=== PATIENT | female | born 1955 | race Caucasian/White ===

== ENCOUNTER 2019-09-12 13:36 | Emergency (ER) | payer MEDICAID ==
--- NOTE | 2019-09-12 14:02 | Emergency Department Record ---
History of Present Illness - General Chief Complaint: Bloody Sputum Stated Complaint: COUGHING BLOOD Time Seen by Provider: 09/12/19 13:56 Source: Patient Mode of Arrival: Ambulatory Limitations: No limitations - History of Present Illness Initial comments: The patient is here due to having a cough for about a week. She has had recent colored sputum production also and did have a fever a few days ago but that went away. This AM she was coughing hard and had a dime size area of blood in her sputum. Since that episode she has had no blood in the sputum. The patient denies any Cp, SOB, or back pain. She does have a hx of recent lung CA and did have XRT and Chemo which has ended. She is also in an experimental trial for lung CA at [facility] and is receiving Nivolumab IV monthly. Onset/Timin -: Week(s) - Related Data Home Medications Medication Instructions Recorded Confirmed Last Taken Ondansetron HCl [Zofran] 8 mg PO ASDIR 09/12/19 09/12/19 Unknown Previous Rx's Medication Instructions Recorded Levofloxacin [Levaquin] 750 mg PO DAILY #4 tab 09/12/19 Allergies Allergy/AdvReac Type Severity Reaction Status Date / Time No Known Drug Allergies Allergy Unverified 03/04/18 10:22 Travel Screening - Travel/Exposure Within Last 30 Days Have you traveled within the last 30 days?: No Review of Systems Constitutional: Reports: Malaise. Denies: Chills, Fever Eyes: Denies: Eye discharge ENT: Reports: Congestion Respiratory: Reports: Cough. Denies: Dyspnea Cardiovascular: Denies: Arrhythmia, Chest pain Endocrine: Reports: Fatigue Gastrointestinal: Denies: Nausea Genitourinary: Denies: Dysuria Musculoskeletal: Denies: Arthralgia Skin: Denies: Bruising Past Medical History - SOCIAL HISTORY Smoking Status: Former smoker Alcohol Use: None Drug Use Detail:: Marijuana - RESPIRATORY Hx Respiratory Disorders: Yes Hx COPD: Yes Comment:: lung cancer - CARDIOVASCULAR Hx Cardio Disorders: No - NEURO Hx Neuro Disorders: No - GI Hx GI Disorders: No - Hx Genitourinary Disorders: No - ENDOCRINE Hx Endocrine Disorders: No - MUSCULOSKELETAL Hx Musculoskeletal Disorders: Yes - PSYCH Hx Psych Problems: No - HEMATOLOGY/ONCOLOGY Hx Hematology/Oncology Disorders: Yes Hx Cancer: Yes Hx Chemotherapy: Yes Hx Radiation Therapy: Yes Family Medical History Any Significant Family History?: No Physical Exam - General General Appearance: Alert, Oriented x3, Cooperative, No acute distress (The patient is speaking in full sentences with no coughing or SOB.) - Head Head exam: Atraumatic, Normocephalic, Normal inspection - Eye Eye exam: Normal appearance, PERRL - ENT Throat exam: Normal inspection. negative: Tonsillar erythema, Tonsillar exudate - Neck Neck exam: Normal inspection, Full ROM. negative: Tenderness - Respiratory Respiratory exam: Decreased breath sounds (There is mildly decreased breath sounds in the bases.). negative: Normal lung sounds bilaterally, Accessory muscle use, Prolonged expiratory, Respiratory distress, Wheezes - Cardiovascular Cardiovascular Exam: Regular rate, Normal rhythm, Normal heart sounds - GI/Abdominal GI/Abdominal exam: Soft, Normal bowel sounds. negative: Tenderness - Extremities Extremities exam: Normal inspection, Full ROM, Normal capillary refill. negative: Tenderness - Neurological Neurological exam: Alert, Normal gait. negative: Abnormal gait, Motor sensory deficit - Psychiatric Psychiatric exam: negative: Anxious Course Vital Signs 09/12/19 13:52 Temperature 98.2 F Pulse Rate 90 Respiratory 20 Rate Blood Pressure 127/80 Pulse Ox 95 - Reevaluation(s) Reevaluation #1: The patient is doing very well and is resting comfortably in no distress. She is still coughing and has had no blood in her colored sputum. I did discuss the xray report that may demonstrate a very early infiltrate. The patient's lung CA is in the same region so it makes it difficult to know if there is a new inf iltrate there or it is the previous CA. Due to the colored sputum and hx of fever we will treat the patient for a bacterial infection with Levaquin. She does have an appointment with a lung specialist next week and understands she is NOT to take the Zofran while taking the Levaquin. The patient does not regularly take the Zofran and understands the need to not take them with the antibiotic. 09/12/19 15:11 Medical Decision Making - Data Complexity MDM Data: Labs Ordered and/or Reviewed, X-Ray Ordered and/or Reviewed - Lab Data Result diagrams: 09/12/19 14:15 09/12/19 14:15 - Radiology Data Radiology results: Report reviewed (CXR: Possible L perihilar infiltrate) Disposition Disposition: Discharge Clinical Impression: Pneumonia Qualifiers: Pneumonia type: due to unspecified organism Laterality: left Lung location: unspecified part of lung Qualified Code(s): J18.9 - Pneumonia, unspecified organism Disposition: Home, Self-Care Condition: (2) Stable Instructions: Upper Respiratory Infection (ED) Additional Instructions: Please continue the Levaquin and please do not take the Zofran while you are taking the antibiotic. Please see your doctor next week if not better and return to the ER for any worsening cough, any fever, or trouble breathing. Prescriptions: Levofloxacin [Levaquin] 750 mg PO DAILY #4 tab Forms: Patient Portal Access Time of Disposition: 15:10 Quality - Quality Measures Quality Measures: N/A - Blood Pressure Screening View Details: Yes Does Patient Have Any of the Following: No Blood Pressure Classification: Pre-Hypertensive BP Reading Systolic Measurement: 127 Diastolic Measurement: 80 Screening for High Blood Pressure: < Pre-Hypertensive BP, F/U Documented > [G8950] Pre-Hypertensive Follow-up Interventions: Referral to alternative/primary care provider.
[2019-09-12 14:31] LABS: ABSOLUTE NEUTROPHIL COUNT 2.53; BASO % 0.7 % (0-6); HEMATOCRIT 36.1 % (35.0-47.0); HEMOGLOBIN 11.9 gm/dl (11.6-16.0); LYMPH % 24.5 % (16-45); MEAN CELL VOLUME 105.2 fl (81-97); MEAN CORPUSCULAR HEMOGLOBIN 34.6 pg (27-33); MONO % 10.8 % (0-9); PLATELET COUNT 231 K/uL (130-400); RED BLOOD COUNT 3.43 M/uL (3.80-5.40); RED CELL DISTRIBUTION WIDTH 11.8 % (11.5-14.5); WHITE BLOOD COUNT W/O DIFF 4.1 K/uL (4.2-12.2)
[2019-09-12 14:42] LABS: BLOOD UREA NITROGEN 10 mg/dL (8-23); CREATININE 0.7 mg/dL (0.5-0.9); EST GLOMERULAR FILTRATION RATE > 60 mL/min
[2019-09-12 14:45] LABS: GLUCOSE,RANDOM 105 mg/dL (74-109)
[2019-09-12 14:48] LABS: C-REACTIVE PROTEIN 2.17 mg/dL (<0.5)
[2019-09-12] MEDS ORDERED: DOXYCYCLINE HYCLATE 100 MG CAPSULE PO ONE (14:54)
--- NOTE | 2019-09-12 14:59 | RADIOLOGY REPORT ---
EXAMINATION: Two View Chest Radiographs EXAM DATE: 09/12/2019 2:38 PM TECHNIQUE: Frontal and lateral views INDICATION: cough for a week. COMPARISON: Report only 03/04/2018 ENCOUNTER: Not applicable FINDINGS: Cardiomediastinal structures unremarkable. Right IJ port. Left perihilar infiltrate. No pulmonary con solidation. No pneumothorax or pleural effusion. Hyperinflation. Dextroscoliosis. IMPRESSION: Left perihilar infiltrate Dictated by: Román Kyle MD on 09/12/2019 2:52 PM. .
[2019-09-12] MEDS ORDERED: LEVOFLOXACIN 500 MG TABLET PO ONE (15:08)
== END 2019-09-12 15:24 | disposition home or self-care (01) ==
LOC: ER 13:36
DX: J18.9 Pneumonia, unspecified organism (principal); J44.9 Chronic obstructive pulmonary disease, unspecified; C34.90 Malignant neoplasm of unspecified part of unspecified bronchus or lung; Z87.891 Personal history of nicotine dependence
CPT/HCPCS: 71046; 80048; 85025; 86140; 99284

== ENCOUNTER 2019-11-19 11:46 | Emergency (ER) | payer OTHER, MEDICAID ==
--- NOTE | 2019-11-19 11:52 | Emergency Department Record ---
History of Present Illness - General Stated complaint: RT PLUGGED EAR Time Seen by Provider: 11/19/19 11:47 Source: Patient Mode of Arrival: Ambulatory Limitations: No limitations - History of Present Illness Initial comments: 64 yo female presents with a sensation that her ears are plugged. She reports she has had cerumen impaction in the past. She has muffled hearing. She tried Debrox without improvement. She denies fever or headache. No swelling. No drainage. MD complaint: Other -: Week(s) (1.5) Location: R ear, L ear Severity: Moderate Quality: Other Consistency: Constant Improves with: None Worsens with: None Context- Ear: Other (Cerumen) Associated Symptoms: Other - Related Data Allergies Allergy/AdvReac Type Severity Reaction Status Date / Time No Known Drug Allergies Allergy Verified 11/19/19 11:53 Review of Systems Constitutional: Denies: Chills, Fever, Malaise, Weakness Eyes: Denies: Eye discharge, Eye pain, Photophobia, Vision change ENT: Reports: As per HPI, Hearing loss. Denies: Congestion, Ear pain, Throat pain Respiratory: Denies: Cough Cardiovascular: Denies: Chest pain Endocrine: Denies: Fatigue Gastrointestinal: Denies: Abdominal pain, Diarrhea, Nausea, Vomiting Genitourinary: Denies: Dysuria, Urgency Musculoskeletal: Denies: Arthralgia, Back pain, Myalgia Skin: Denies: Bruising, Change in color, Rash Neurological: Denies: Headache Psychiatric: Denies: Anxiety Hematological/Lymphatic: Denies: Easy bleeding, Easy bruising Past Medical History - SOCIAL HISTORY Smoking Status: Former smoker Drug Use Detail:: Marijuana - RESPIRATORY Hx Respiratory Disorders: Yes Hx COPD: Yes Comment:: lung cancer - CARDIOVASCULAR Hx Cardio Disorders: No - NEURO Hx Neuro Disorders: No - GI Hx GI Disorders: No - Hx Genitourinary Disorders: No - ENDOCRINE Hx Endocrine Disorders: No - MUSCULOSKELETAL Hx Musculoskeletal Disorders: Yes - PSYCH Hx Psych Problems: No - HEMATOLOGY/ONCOLOGY Hx Hematology/Oncology Disorders: Yes Hx Cancer: Yes Hx Chemotherapy: Yes Hx Radiation Therapy: Yes Physical Exam - General General Appearance: Alert, Oriented x3, Cooperative, No acute distress Limitations: No limitations - Head Head exam: Atraumatic, Normal inspection - Eye Eye exam: Normal appearance, PERRL. negative: Conjunctival injection, Periorbital swelling, Scleral icterus - ENT ENT exam: Mucous membranes moist. negative: Normal exam, Mucous membranes dry, TM's normal bilaterally (Bilateral TM cerumen impaction, no erythema, no swelling, no inflammation) Ear exam: Other (cerumen impaction). negative: Auricular hematoma, Auricular trauma, External canal tenderness Nasal Exam: Normal inspection Mouth exam: Normal external inspection Throat exam: Normal inspection - Neck Neck exam: Normal inspection - Neurological Neurological exam: Alert, Oriented X3 - Psychiatric Psychiatric exam: Normal affect, Normal mood - Skin Skin exam: Dry, Intact, Normal color, Warm Course - Reevaluation(s) Reevaluation #1: 11/19/19 11:52 The Examination is consistent with bilateral cerumen impaction 11/19/19 12:16 The ears were rechecked after irrigation Greatly improved with wax removal that was copious Minimal residual on right, left is clear She can use the Debrox a few more days on the right She has oriental orthodox of her normal hearing She does now have some nausea and dizziness DC home with home care instructions and a recommendation to follow up a recheck with her PCP 11/19/19 12:19 Disposition Disposition: Discharge Clinical Impression: Impacted cerumen of both ears Disposition: Home, Self-Care Condition: (1) Good Instructions: Cerumen Impaction (ED) Additional Instructions: Call your doctor for the next available follow up appointment if your symptoms return Time of Disposition: 12:17 Quality - Quality Measures Quality Measures: N/A - Blood Pressure Screening Does Patient Have Any of the Following: No Blood Pressure Classification: Pre-Hypertensive BP Reading Systolic Measurement: 127 Diastolic Measurement: 79 Screening for High Blood Pressure: < Pre-Hypertensive BP, F/U Documented > [G8950] Pre-Hypertensive Follow-up Interventions: Referral to alternative/primary care provider.
[2019-11-19] MEDS ORDERED: MECLIZINE 25 MG TABLET PO ONE (12:15)
[2019-11-19] MEDS ORDERED: ONDANSETRON 4 MG ODT TABLET SL ONE (12:15)
== END 2019-11-19 12:41 | disposition home or self-care (01) ==
LOC: ER 11:46
DX: H61.23 Impacted cerumen, bilateral (principal); R11.0 Nausea; R42 Dizziness and giddiness; J44.9 Chronic obstructive pulmonary disease, unspecified; Z87.891 Personal history of nicotine dependence
CPT/HCPCS: 99282

== ENCOUNTER 2019-11-27 16:33 | Emergency (ER) | payer OTHER, MEDICAID ==
--- NOTE | 2019-11-27 16:42 | Emergency Department Record ---
History of Present Illness - General Stated complaint: EAR PAIN Time Seen by Provider: 11/27/19 16:35 Source: Patient Mode of Arrival: Ambulatory Limitations: No limitations - History of Present Illness Initial comments: 64 yo female presents with ear pain. She was seen in the ED about 8 days ago with bilateral cerumen impaction. She developed left ear pain three days ago. No current drainage or blood. The ear is tender. No external swelling. No posterior tenderness. No hearing loss. No cough. No fever. No swollen glands. She has continued to use Cerumex since the last ED visit. MD complaint: Ear pain -: Days(s) Location: Other Severity: Moderate Quality: Aching Consistency: Constant Improves with: None Worsens with: Movement Context- Ear: Recent illness Associated Symptoms: Other - Related Data Previous Rx's Medication Instructions Recorded Amoxicillin 500Mg Capsule [Amoxil] 500 mg PO TID #30 tab 11/27/19 Neomycin/Polymyxin B Sulf/Hc 2 drop AFFEAR QID #10 ml 11/27/19 [Cortisporin Otic] Allergies Allergy/AdvReac Type Severity Reaction Status Date / Time No Known Drug Allergies Allergy Verified 11/27/19 16:41 Review of Systems Constitutional: Denies: Chills, Fever, Malaise, Weakness Eyes: Denies: Eye discharge, Eye pain, Photophobia, Vision change ENT: Reports: Ear pain. Denies: Congestion, Throat pain Respiratory: Denies: Cough Cardiovascular: Denies: Chest pain, Syncope Endocrine: Denies: Fatigue Gastrointestinal: Denies: Abdominal pain, Diarrhea, Nausea, Vomiting Musculoskeletal: Denies: Arthralgia, Back pain, Neck pain Skin: Denies: Bruising, Change in color, Rash Neurological: Denies: Headache, Numbness, Weakness Psychiatric: Denies: Anxiety Hematological/Lymphatic: Denies: Easy bleeding, Easy bruising Past Medical History - SOCIAL HISTORY Smoking Status: Former smoker Drug Use Detail:: Marijuana - RESPIRATORY Hx Respiratory Disorders: Yes Hx COPD: Yes Comment:: lung cancer - CARDIOVASCULAR Hx Cardio Disorders: No - NEURO Hx Neuro Disorders: No - GI Hx GI Disorders: No - Hx Genitourinary Disorders: No - ENDOCRINE Hx Endocrine Disorders: No - MUSCULOSKELETAL Hx Musculoskeletal Disorders: Yes - PSYCH Hx Psych Problems: No - HEMATOLOGY/ONCOLOGY Hx Hematology/Oncology Disorders: Yes Hx Cancer: Yes Hx Chemotherapy: Yes Hx Radiation Therapy: Yes Physical Exam - General General Appearance: Alert, Oriented x3, Cooperative, No acute distress Limitations: No limitations - Head Head exam: Atraumatic. negative: Normal inspection - Eye Eye exam: Normal appearance, PERRL. negative: Conjunctival injection, Scleral icterus - ENT ENT exam: Normal exam, Mucous membranes moist. negative: TM's normal bilaterally (Mild L TM erythema, canal erythema, mild, no perforation) Ear exam: External canal tenderness, Other (No mastoid tenderness). negative: Normal external inspection, Auricular hematoma, Auricular trauma Nasal Exam: Normal inspection Mouth exam: Normal external inspection Teeth exam: Normal inspection Throat exam: Normal inspection - Neck Neck exam: Full ROM, Other. negative: Lymphadenopathy, Tenderness - Respiratory Respiratory exam: Normal lung sounds bilaterally. negative: Rhonchi, Stridor, Wheezes - Cardiovascular Cardiovascular Exam: Regular rate, Normal rhythm, Normal heart sounds - GI/Abdominal GI/Abdominal exam: Soft. negative: Tenderness - Rectal Rectal exam: Deferred - exam: Deferred - Extremities Extremities exam: Normal inspection - Neurological Neurological exam: Alert, Oriented X3, Other (symmetric face and smile) - Psychiatric Psychiatric exam: negative: Agitated, Anxious - Skin Skin exam: Dry, Intact, Normal color, Warm Disposition Disposition: Discharge Clinical Impression: Otitis externa Disposition: Home, Self-Care Condition: (1) Good Instructions: Otitis Externa (ED) Additional Instructions: Follow up as scheduled with your family doctor on the Return to the ER for a recheck immediately if worse, any new concerns or questions You can stop the Cerumenex medication now that your ear wax is completely gone Take the prescriptions provided as directed Prescriptions: Amoxicillin 500Mg Capsule [Amoxil] 500 mg PO TID #30 tab Neomycin/Polymyxin B Sulf/Hc [Cortisporin Otic] 2 drop AFFEAR QID #10 ml Forms: Patient Portal Access Time of Disposition: 16:44 Quality - Quality Measures Quality Measures: N/A - Blood Pressure Screening Does Patient Have Any of the Following: No Blood Pressure Classification: Pre-Hypertensive BP Reading Systolic Measurement: 139 Diastolic Measurement: 79 Screening for High Blood Pressure: < Pre-Hypertensive BP, F/U Documented > [G8950] Pre-Hypertensive Follow-up Interventions: Referral to alternative/primary care provider.
== END 2019-11-27 17:17 | disposition home or self-care (01) ==
LOC: ER 16:33
DX: H60.502 Unspecified acute noninfective otitis externa, left ear (principal); J44.9 Chronic obstructive pulmonary disease, unspecified; Z87.891 Personal history of nicotine dependence
CPT/HCPCS: 99283